=== PATIENT | female | born 1965 | race Caucasian/White ===

== ENCOUNTER 2016-12-12 15:34 | Observation (INO) | payer BC ==
[~2016-12-12] VITALS: Ht 167.6 cm; Wt 80.8 kg
--- NOTE | ~2016-12-12 | D ---
[facility] [place] [address] DISCHARGE SUMMARY Name: JANICE MCMANUS Room #: 443-P [facility] M.R.#: [id number] Admission: 12/12/16 Attend Phys: Lakeisha Silva MD Discharge: 12/14/16 Date of : 61 Report #: [id number] THIS REPORT FOR: //name// CC: Lakeisha Silva DATE OF SERVICE: 12/14/2016 DIAGNOSES ON DISCHARGE: 1. Left footdrop. 2. Dyslipidemia. 3. Liver cirrhosis. 4. Chronic obstructive pulmonary disease. COURSE OF HOSPITALIZATION: The patient was admitted to the hospital with the above-mentioned diagnoses. The patient was treated with physical therapy and occupational therapy, with the plan for the patient to have AFO applied to her foot to support the foot. The patient had investigation and testing that was negative. The patient will be discharged to home and she is to follow up with us as an outpatient. <ELECTRONICALLY SIGNED> By: Lakeisha Silva MD 01/04/1706 6 Lakeisha Silva MD /nt
--- NOTE | ~2016-12-12 | H ---
[facility] [place] [address] HISTORY AND PHYSICAL Name: JANICE MCMANUS Room #: 443-P [facility].Harjit#: [id number] Admission: 12/12/16 Attend Phys: Lakeisha Silva MD Discharge: Date of : 61 Report #: [id number] THIS REPORT FOR: //name// CC: Lakeisha Silva DATE OF SERVICE: 12/12/2016 DATE OF SERVICE: 12/12/2016 HISTORY OF PRESENT ILLNESS: The patient is a 51-year-old female who was brought to the emergency room with weakness and dropped foot on the left foot that started all of a sudden after sitting on the floor for about an hour and listening to a concert. The patient indicated that she felt her foot numb, so she stood up and tried to move it, but unfortunately she was unable to dorsiflex the foot. For this reason, she came to the emergency room to be evaluated. The patient did not have any other symptoms. PAST MEDICAL HISTORY: Significant for peripheral arterial disease with multiple stent placements. The patient has history of gastroesophageal reflux disease and she has a history of diffuse large B-cell lymphoma that was diagnosed in 2006 and treated and cured. The patient had a history of thrombocytopenia, nonalcoholic liver cirrhosis, chronic obstructive pulmonary disease, Crohn disease, depression, hernia, hypertension, hyperlipidemia, heart murmur, as I mentioned, peripheral arterial disease with stents in the abdomen and both legs, type 2 diabetes mellitus. The patient wears eyeglasses. The patient has a history of right rotator cuff tear, and ____ esophagitis. The patient has a history of appendectomy, cholecystectomy and tonsillectomy. The patient had partial sigmoidectomy due to small-bowel obstruction with some small bowel resection. The patient had a ventral hernia repair twice. MEDICATIONS: Reviewed. ALLERGIES: No known drug allergies. SOCIAL HISTORY: The patient continues to smoke about 1 pack a day and has been doing that for 36 years. The patient drinks alcohol occasionally. She does not use any drugs. The patient is not sexually active FAMILY HISTORY: Significant for father at the age of 71 because of a heart attack, and mother at the age of 68 because of COPD. REVIEW OF SYSTEMS: The patient denies any headache, blurred vision, runny nose, sore throat, cough, chest pain, shortness of breath or palpitation. She denies any nausea, vomiting or changes in her bowels. She denies any pain in the arms or legs. [facility] [address] [place] [address] HISTORY AND PHYSICAL Name: JANICE MCMANUS [facility] [id number] Admission: 12/12/16 Attend Phys: Lakeisha Silva MD Discharge: Date of : 61 Report #: [id number] PHYSICAL EXAMINATION: VITAL SIGNS: Showed a temperature of 98.7, pulse 107, respirations 16, blood pressure 142/80. HEAD AND NECK: Unremarkable. NECK: Supple. LUNGS: Clear to auscultation. CARDIAC: S1, S2. ABDOMEN: Benign. Bowel sounds were positive. EXTREMITIES: Without any edema. NEUROLOGIC: The patient has obvious her left foot drop and inability to wiggle her toes on the left. LABORATORY DATA: The patient's CBC showed a white count of 9.1, hemoglobin 15.5, hematocrit 44.1, platelet count 126 and neutrophils are 57%. The patient's sodium is 131, potassium 4.1, chloride 97, bicarbonate 21. Glucose of 312, calcium is 8.9. The patient's CT of the head showed no intracranial abnormalities, right parotid mass with non-emergent ultrasound is suggested Alcohol level less than 10, folic acid is 25. Vitamin B12 549. ASSESSMENT: 1. Left foot drop that is sudden. 2. Diabetes mellitus. 3. Morbid obesity. 4. Chronic obstructive pulmonary disease. 5. Right parotid gland mass. 6. Recent diagnosis of folliculitis. 7. Smoking addiction. 8. Possible mass on the right breast. PLAN: The patient was admitted to the hospital with the above-mentioned diagnoses. The patient will be evaluated by neurology. The patient to resume her home medications. The patient was started on nicotine patch. I will do an ultrasound of her right parotid gland. The patient to resume her Keflex. The patient is supposed to have a diagnostic mammogram done on Wednesday. <ELECTRONICALLY SIGNED> By: Lakeisha Silva MD 12/14/16 0846 [id number] Lakeisha Silva MD /nt
[2016-12-12 15:37] VITALS: BP 142/80
[2016-12-12] MEDS ORDERED: LAMICTAL100 MG PO (15:50)
[2016-12-12] MEDS ORDERED: NOVOLOG100 UNIT/1 SUBQ (15:50)
[2016-12-12] MEDS ORDERED: METFORMIN HCL500 MG PO (15:50)
[2016-12-12] MEDS ORDERED: LANTUS100 UNIT/M SUBQ (15:50)
[2016-12-12] MEDS ORDERED: LIORESAL 10 MG10 MG PO (15:51)
[2016-12-12] MEDS ORDERED: IBUPROFEN 400400 M2 PO (15:51)
[2016-12-12 16:16] LABS: ABSOLUTE NEUTROPHILS 5.2 thou/uL (1.4-8.2); BASOPHILS 0.9 % (0.0-2.0); HEMATOCRIT 44.1 % (37.0-47.0); HEMOGLOBIN 15.5 gm/dL (12.0-15.0); MCH 32.4 pg (26.0-34.0); MCHC 35.2 g/dL (28.0-37.0); MCV 91.9 fL (80.0-100.0); MONOCYTES 6.5 % (1.0-8.0); PLATELET COUNT 126 thou/uL (150-400); POLYS 57.6 % (36.0-66.0); RBC 4.79 mil/uL (4.20-5.00); RDW 13.3 % (10.5-14.5); WBC 9.1 thou/uL (4.0-11.0)
[2016-12-12 16:19] LABS: MANUAL DIFF NO
[2016-12-12 16:20] LABS: CALCIUM 8.9 mg/dL (8.5-10.1); POTASSIUM 4.1 mmol/L (3.5-5.1)
[2016-12-12 16:57] VITALS: BP 123/79
[2016-12-12 17:36] VITALS: BP 129/78
[2016-12-12 18:07] LABS: FOLIC ACID 25.3 ng/mL (8.6-58.9)
[2016-12-12 20:06] VITALS: BP 117/69
[2016-12-13 00:37] VITALS: BP 144/85
[2016-12-13 05:38] VITALS: BP 136/83
[2016-12-13 08:00] VITALS: BP 135/80
[2016-12-13 16:00] VITALS: BP 121/70
[2016-12-13 20:25] VITALS: BP 131/69
[2016-12-14 05:11] LABS: CHOLESTEROL 244 mg/dL (<200); HDL CHOLESTEROL 46 mg/dL (>40); LDL CHOLESTEROL 158 mg/dL (<100); TC:HDL 5.3 Ratio (Not establshd); TRIGLYCERIDE 200 mg/dL (<150); VLDL 40 mg/dL (<40)
[2016-12-14 05:12] LABS: SERUM ASSESSMENT Clear
[2016-12-14 06:00] VITALS: BP 127/72
[2016-12-14 07:20] VITALS: BP 116/73
[2016-12-14 15:00] VITALS: BP 116/73
== END 2016-12-14 15:48 | disposition home or self-care (01) ==
LOC: ER 15:34 → EROBS 16:58 → 4S 16:58 → ENTRNSPT 12-14 15:40 → EDTRNSPTSTS 12-14 15:44 → 4S 12-14 15:48
PROVIDERS: Nurse Practitioner; Psychiatry & Neurology Neurology
DX: M21.372 Foot drop, left foot (principal); E11.9 Type 2 diabetes mellitus without complications; E66.01 Morbid (severe) obesity due to excess calories; J44.9 Chronic obstructive pulmonary disease, unspecified; I89.8 Other specified noninfective disorders of lymphatic vessels and lymph nodes; F17.200 Nicotine dependence, unspecified, uncomplicated; K21.9 Gastro-esophageal reflux disease without esophagitis; I10 Essential (primary) hypertension; E78.5 Hyperlipidemia, unspecified

== ENCOUNTER → 2016-12-15 | Outpatient (CLI) | payer BC ==
[~2016-12-15] MED LIST: IBUPROFEN 400400 M2 PO; LAMICTAL100 MG PO; LANTUS100 UNIT/M SUBQ; LIORESAL 10 MG10 MG PO; METFORMIN HCL500 MG PO; NOVOLOG100 UNIT/1 SUBQ
== END ==
LOC: ULTRA 01:23 → RAD 01:23
DX: N63 Unspecified lump in breast (principal)

== ENCOUNTER 2017-03-25 09:52 | Emergency (ER) | payer BC ==
[~2017-03-25] VITALS: Ht 162.6 cm; Wt 79.4 kg
[2017-03-25 10:19] LABS: URINE BILIRUBIN NEGATIVE (Negative); URINE BLOOD NEGATIVE (Negative); URINE CLARITY CLEAR; URINE COLOR YELLOW; URINE GLUCOSE-RANDOM* 3+ (Negative); URINE KETONES NEGATIVE (Negative); URINE LEUKOCYTES NEGATIVE (Negative); URINE NITRITE NEGATIVE (Negative); URINE PROTEIN (DIPSTICK) NEGATIVE (Negative); URINE UROBILINOGEN 0.2 E.U./dl (0.2-1.0)
[2017-03-25 10:26] LABS: ABSOLUTE NEUTROPHILS 5.7 thou/uL (1.4-8.2); EOSINOPHILS 1.4 % (0.0-3.0); HEMATOCRIT 46.5 % (37.0-47.0); HEMOGLOBIN 16.4 gm/dL (12.0-15.0); LYMPHOCYTES 26.5 % (24.0-44.0); MCH 32.4 pg (26.0-34.0); MCHC 35.4 g/dL (28.0-37.0); MCV 91.7 fL (80.0-100.0); MONOCYTES 4.8 % (1.0-8.0); PLATELET COUNT 123 thou/uL (150-400); POLYS 66.3 % (36.0-66.0); RBC 5.07 mil/uL (4.20-5.00); RDW 12.9 % (10.5-14.5); WBC 8.6 thou/uL (4.0-11.0)
[2017-03-25 10:35] LABS: CALCIUM 8.7 mg/dL (8.5-10.1); CREATININE 0.8 mg/dL (0.6-1.0)
[2017-03-25 10:41] LABS: ALBUMIN 3.7 g/dL (3.4-5.0); TOTAL BILIRUBIN 0.6 mg/dL (<0.1-1.0); TOTAL PROTEIN 7.3 g/dL (6.4-8.2)
[2017-03-25] MEDS ORDERED: PHENERGAN 25 MG25 M1 PO (11:52)
[2017-03-25] MEDS ORDERED: HYDROCODONE-AP1 EAC6 PO (11:52)
[2017-03-25 11:58] VITALS: BP 124/70
== END 2017-03-25 12:10 | disposition home or self-care (01) ==
LOC: ER 09:52
PROVIDERS: Physician Assistant
DX: R10.10 Upper abdominal pain, unspecified (principal); E11.9 Type 2 diabetes mellitus without complications; F32.9 Major depressive disorder, single episode, unspecified; K50.90 Crohn's disease, unspecified, without complications; F17.210 Nicotine dependence, cigarettes, uncomplicated; Z79.4 Long term (current) use of insulin

== ENCOUNTER → 2017-05-24 | Outpatient (CLI) | payer BC ==
[~2017-05-24] MED LIST changes: +ASPIR 8181 MG PO; +ATORVASTATIN CA40 MG PO; +CRESTOR20 MG PO; +HUMALOG100 UNIT/1 SUBQ; +HYDROCODONE-AP1 EAC6 PO; +LAMOTRIGINE100 MG PO; +NICOTINE TRANSD14 M1 TRANSDERM; +OMEPRAZOLE 20 M20 M1 PO; +PHENERGAN 25 MG25 M1 PO
== END ==
LOC: ULTRA 07:59
DX: K76.0 Fatty (change of) liver, not elsewhere classified (principal); R74.8 Abnormal levels of other serum enzymes

== ENCOUNTER 2017-10-25 13:14 | Inpatient (IN) | payer BC ==
[~2017-10-25] VITALS: Ht 167.6 cm; Wt 78.0 kg
--- NOTE | ~2017-10-25 | EKG ---
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
--- NOTE | ~2017-10-25 | 2DMMODE ---
[facility] [address] [place] [address] 2 D/M-MODE ECHOCARDIOGRAM Name: JANICE MCMANUS Room #: 356-P ADM IN M.R.#: [id number] Admission: 10/25/17 Attend Phys: Lakeisha Silva MD Discharge: Date of : 61 Date of Service: 10/26/17 1251 Report #: [id number] THIS REPORT FOR: //name// APPROVED REPORT Study performed: 10/26/2017 11:43:15 EXAM: Comprehensive 2D, Doppler, and color-flow Echocardiogram Patient Location: Echo lab Room #: 356 Status: routine BSA: 1.88 HR: 80 bpm BP: 117/75 mmHg Rhythm: NSR Other Information Study Quality: Good Indications Murmur Chest Pain Hx: DM, HTN, HLP, PVD, tobacco abuse. 2D Dimensions RVDd: 30.07 mm LVEF(%): 48.70 (>50%) IVSd: 12.00 (7-11mm) LVOT Diam: 20.17 (18-24mm) LVDd: 50.00 mm PWd: 12.00 (7-11mm) Ascending Ao: 0.00 (22-36mm) LVDs: 36.74 (25-40mm) Aortic Root: 30.43 mm Cartwright's LVEF: 48.70 % Volumes Left Atrial Volume (Systole) Single Plane 4CH: 31.59 mL Single Plane 2CH: 40.38 mL LA ESV Index: 21.00 mL/m2 Aortic Valve AoV Peak Ramon.: 3.77 m/s AO Peak Gr.: 56.92 mmHg LVOT Max P.02 mmHg AO Mean Gr.: 29.17 mmHg AO V2 Mean: 2.53 m/s LVOT Max V: 1.00 m/s AO V2 VTI: 74.39 cm GABRIELLE Vmax: 0.85 cm2 [facility] [place] [address] 2 D/M-MODE ECHOCARDIOGRAM Name: JANICE MCMANUS Room #: 356-P ADM IN .R.#: [id number] Admission: 10/25/17 Attend Phys: Lakeisha Silva MD Discharge: Date of : 61 Date of Service: 10/26/17 1251 Report #: [id number] Mitral Valve E/A Ratio: 0.8 MV Decel. Time: 264.87 ms MV E Max Ramon.: 0.69 m/s MV A Ramon.: 0.87 m/s MV PHT: 76.81 ms IVRT: 89.97 ms Pulmonary Valve PV Peak Ramon.: 0.94 m/s PV Peak Gr.: 3.53 mmHg Pulmonary Vein P Vein S: 0.64 m/s P Vein A: 0.32 m/s P Vein D: 0.43 m/s P Vein S/D Ratio: 1.49 Tricuspid Valve TR Peak Ramon.: 2.38 m/s RAP Estimate: 5.00 mmHg TR Peak Gr.: 22.70 mmHg PA Pressure: 28.00 mmHg Left Ventricle The left ventricle is normal size. There is normal LV segmental wall motion. Mild concentric left ventricular hypertrophy. Left ventricular systolic function is normal. LVEF is 55%. Mild diastolic dysfunction is present (impaired relaxation pattern). Right Ventricle The right ventricle is normal size. The right ventricular systolic function is normal. Atria The left atrium size is normal. The right atrium size is normal. Aortic Valve Aortic valve is heavily calcified, trileaflet. Moderate to severe stenosis No aortic regurgitation is present. There is moderate to severe valvular aortic stenosis. Calculated aortic valve area is 0.8 cm2 with maximum pressure gradient of 57 mmHg and mean pressure gradient of 29 mmHg. Mitral Valve The mitral valve is normal in structure. Trace mitral regurgitation. [facility] [address] [place] [address] 2 D/M-MODE ECHOCARDIOGRAM Name: JANICE MCMANUS Room #: 356-P [facility] IN .R.#: [id number] Admission: 10/25/17 Attend Phys: Lakeisha Silva MD Discharge: Date of : 61 Date of Service: 10/26/17 1251 Report #: [id number] Tricuspid Valve The tricuspid valve is normal in structure. Mild tricuspid regurgitation. Estimated PAP is 25-30mmHg. Pulmonic Valve The pulmonary valve is normal in structure. Trace pulmonic regurgitation. Great Vessels The aortic root is normal in size. The ascending aorta is normal in size. IVC is normal in size and collapses >50% with inspiration. Pericardium There is no pericardial effusion. <Conclusion> Left ventricular systolic function is normal. There is normal LV segmental wall motion. LVEF is 55%. Mild diastolic dysfunction Aortic valve is heavily calcified, trileaflet. Moderate to severe stenosis Calculated aortic valve area: 0.8 cm2 with maximum pressure gradient of 57 mmHg, mean pressure gradient of 29 mmHg. The mitral valve is normal in structure. Trace mitral regurgitation. Mild tricuspid regurgitation. Estimated pulmonary artery pressure of 25-30mmHg. There is no pericardial effusion. <ELECTRONICALLY SIGNED> By: Nic López MD, FACC 10/26/17 1251 1251 1251 Nic López MD, FACC /INF
--- NOTE | ~2017-10-25 | EKG ---
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
[~2017-10-25 13:14] MED LIST changes: -ASPIR 8181 MG PO; -ATORVASTATIN CA40 MG PO; -CRESTOR20 MG PO; -HUMALOG100 UNIT/1 SUBQ; -LAMOTRIGINE100 MG PO; -NICOTINE TRANSD14 M1 TRANSDERM; -OMEPRAZOLE 20 M20 M1 PO
[2017-10-25 13:20] VITALS: BP 135/103
[2017-10-25 13:56] LABS: ABSOLUTE NEUTROPHILS 5.4 thou/uL (1.4-8.2); BASOPHILS 0.9 % (0.0-2.0); EOSINOPHILS 1.3 % (0.0-3.0); HEMATOCRIT 48.2 % (37.0-47.0); HEMOGLOBIN 16.9 gm/dL (12.0-15.0); LYMPHOCYTES 25.3 % (24.0-44.0); MCH 31.7 pg (26.0-34.0); MCHC 35.1 g/dL (28.0-37.0); MCV 90.2 fL (80.0-100.0); MONOCYTES 4.5 % (1.0-8.0); PLATELET COUNT 102 thou/uL (150-400); RBC 5.34 mil/uL (4.20-5.00); RDW 13.3 % (10.5-14.5)
[2017-10-25 14:13] LABS: ANION GAP 8 mmol/L (7-16); BUN 11 mg/dL (7-18); CALCIUM 8.7 mg/dL (8.5-10.1); CHLORIDE 100 mmol/L (98-107); CO2 25 mmol/L (21-32); CREATININE 0.7 mg/dL (0.6-1.0); GLUCOSE 297 mg/dL (74-106); POTASSIUM 3.9 mmol/L (3.5-5.1); SODIUM 133 mmol/L (136-145)
[2017-10-25 14:17] LABS: ALBUMIN 4.1 g/dL (3.4-5.0); LIPASE 163 U/L (73-393); SGOT 30 U/L (15-37); SGPT 51 U/L (30-65); TOTAL BILIRUBIN 0.7 mg/dL (<0.1-1.0); TOTAL PROTEIN 7.8 g/dL (6.4-8.2); TROPONIN-I <0.06 ng/mL (<0.06)
[2017-10-25 15:06] VITALS: BP 138/82
[2017-10-25 15:27] LABS: CHOLESTEROL 289 mg/dL (<200); HDL CHOLESTEROL 50 mg/dL (>40); LDL CHOLESTEROL 194 mg/dL (<100); TC:HDL 5.8 Ratio (Not establshd); TRIGLYCERIDE 225 mg/dL (<150); VLDL 45 mg/dL (<40)
[2017-10-25 15:52] VITALS: BP 138/82
[2017-10-25 16:00] VITALS: BP 126/77
[2017-10-25] MEDS ORDERED: HUMALOG100 UNIT/1 SUBQ ×2 (18:22→18:23)
[2017-10-25] MEDS ORDERED: LAMOTRIGINE100 MG PO (18:25)
[2017-10-25] MEDS ORDERED: OMEPRAZOLE 20 M20 M1 PO (18:28)
[2017-10-25] MEDS ORDERED: CRESTOR20 MG PO (18:28)
[2017-10-25 19:25] VITALS: BP 128/78
[2017-10-26 03:22] LABS: ANION GAP 8 mmol/L (7-16); BUN 13 mg/dL (7-18); CALCIUM 8.7 mg/dL (8.5-10.1); CHLORIDE 101 mmol/L (98-107); CO2 25 mmol/L (21-32); CREATININE 0.6 mg/dL (0.6-1.0); GLUCOSE 276 mg/dL (74-106); POTASSIUM 3.3 mmol/L (3.5-5.1); SODIUM 134 mmol/L (136-145)
[2017-10-26 03:25] LABS: ALBUMIN 3.3 g/dL (3.4-5.0); PHOSPHORUS 4.4 mg/dL (2.5-4.9); TROPONIN-I <0.06 ng/mL (<0.06)
[2017-10-26 04:00] VITALS: BP 136/69
[2017-10-26 08:05] VITALS: BP 117/75
[2017-10-26 12:40] VITALS: BP 135/78
[2017-10-26 16:43] VITALS: BP 163/79
[2017-10-26 19:44] VITALS: BP 142/81
[2017-10-27] VITALS (7 sets, daily range): BP systolic 108–138; BP diastolic 64–83
[2017-10-27 05:38] LABS: HEMATOCRIT 43.3 % (37.0-47.0); HEMOGLOBIN 15.1 gm/dL (12.0-15.0); MCH 31.6 pg (26.0-34.0); MCHC 34.8 g/dL (28.0-37.0); MCV 90.8 fL (80.0-100.0); RBC 4.77 mil/uL (4.20-5.00); RDW 13.1 % (10.5-14.5); WBC 6.2 thou/uL (4.0-11.0)
[2017-10-27 06:10] LABS: CALCIUM 8.7 mg/dL (8.5-10.1); CREATININE 0.7 mg/dL (0.6-1.0); POTASSIUM 3.8 mmol/L (3.5-5.1)
[2017-10-28] VITALS: BP 105/57
[2017-10-28 05:15] VITALS: BP 132/64
[2017-10-28 06:30] LABS: ABSOLUTE NEUTROPHILS 3.5 thou/uL (1.4-8.2); BASOPHILS 0.6 % (0.0-2.0); EOSINOPHILS 1.7 % (0.0-3.0); HEMATOCRIT 44.1 % (37.0-47.0); HEMOGLOBIN 15.3 gm/dL (12.0-15.0); LYMPHOCYTES 31.3 % (24.0-44.0); MCH 31.7 pg (26.0-34.0); MCHC 34.8 g/dL (28.0-37.0); MONOCYTES 7.2 % (1.0-8.0); POLYS 59.2 % (36.0-66.0); RBC 4.84 mil/uL (4.20-5.00); WBC 5.9 thou/uL (4.0-11.0)
[2017-10-28 06:33] LABS: PLATELET COUNT 90 thou/uL (150-400)
[2017-10-28 06:41] LABS: CALCIUM 8.8 mg/dL (8.5-10.1); CREATININE 0.7 mg/dL (0.6-1.0)
[2017-10-28 08:13] VITALS: BP 115/84
[2017-10-28] MEDS ORDERED: NICOTINE TRANSD14 M1 TRANSDERM (12:01)
[2017-10-28] MEDS ORDERED: ATORVASTATIN CA40 MG PO (12:01)
[2017-10-28] MEDS ORDERED: ASPIR 8181 MG PO (12:01)
[2017-10-28 12:07] VITALS: BP 105/70
[2017-10-28 12:21] VITALS: BP 115/84
== END 2017-10-28 13:19 | disposition home or self-care (01) | DRG 287 ==
LOC: ER 13:14 → 3W 14:50 → EROBS 14:50 → 3W 15:43
PROVIDERS: Hospitalist; Internal Medicine; Nurse Practitioner Adult Health; Student in an Organized Health Care Education/Training Program
PROC: B2111ZZ Fluoroscopy of Multiple Coronary Arteries using Low Osmolar Contrast (ICD-10-PCS; principal; 2017-10-27)
PROC: 4A023N7 Measurement of Cardiac Sampling and Pressure, Left Heart, Percutaneous Approach (ICD-10-PCS; principal; 2017-10-27)
DX: I25.10 Atherosclerotic heart disease of native coronary artery without angina pectoris (principal); K50.90 Crohn's disease, unspecified, without complications; F32.9 Major depressive disorder, single episode, unspecified; K74.60 Unspecified cirrhosis of liver; F17.210 Nicotine dependence, cigarettes, uncomplicated; E78.5 Hyperlipidemia, unspecified; E11.51 Type 2 diabetes mellitus with diabetic peripheral angiopathy without gangrene; Z60.2 Problems related to living alone; R01.1 Cardiac murmur, unspecified; K21.9 Gastro-esophageal reflux disease without esophagitis; I35.0 Nonrheumatic aortic (valve) stenosis; Z95.820 Peripheral vascular angioplasty status with implants and grafts; Z79.82 Long term (current) use of aspirin; Z79.899 Other long term (current) drug therapy; Z82.49 Family history of ischemic heart disease and other diseases of the circulatory system; Z83.3 Family history of diabetes mellitus
CPT/HCPCS: 10779